=== PATIENT | female | born 1950 | race African-American/Black ===

== ENCOUNTER 2016-04-14 23:00 | Inpatient (IN) | payer MEDICARE, OTHER ==
--- NOTE | ~2016-04-14 | DS ---
Discharge Summary [facility] [address] [place]. [address] NAME: DAVID TERRELL : 54 STATUS : DIS IN PAT#: [id number] AGE: 66 ADM/REG DATE : 04/15/16 MR#: [id number] REPORT SERV DATE: 04/27/16 DICTATED BY: SRIKANTH MADRIGAL JR. DATE: 04/27/16 REPORT STATUS : Draft TRANSCRIBED BY: MIKAEL DATE: 04/27/16 Data Collection from hospitalization DISCHARGE DIAGNOSES: 1. Right leg ischemia. 2. Systolic dysfunction. 3. Hypertension. 4. Diabetes. 5. Tobacco use. 6. Peripheral arterial disease. 7. Anxiety disorder. 8. History of congestive heart failure. 9. History of colon cancer. 10.Atrial fibrillation. CONSULTATIONS: Xander Arellano MD. PROCEDURES: 1. Arteriographic puncture of left common femoral artery using SonoSite machine/aortogram, selective right leg runoff, placement of tPA catheter in the right distal popliteal artery, 04/15/2016. 2. Followup arteriogram following tPA infusion, AngioJet thrombectomy of right peroneal artery and right profunda femoris artery, 04/15/2016. DISCHARGE MEDICATIONS: Lipitor 40 mg at bedtime; Coreg 12.5 mg twice a day; Maximum D3, 10,000 units every seven days; Flexeril 10 mg every 8 hours as needed; Bentyl 20 mg four times a day as needed; Lovenox 60 mg twice a day; Scott 5/325 one tablet every 12 hours as needed; Prinivil 20 mg daily; Prilosec 40 mg daily as needed; Zantac 300 mg twice a day; Flector patch one patch topically daily as needed; and Coumadin as instructed. She was instructed not to continue Inderal 160 mg daily. CONDITION AT DISCHARGE: Stable. DISPOSITION: The patient was discharged home on a low-sodium, low-cholesterol cardiac diet with activities as instructed. She would follow up with Dr. Rajeev Freed, 04/21/2016, and Dr. Xander Arellano, 05/13/2016. She would follow up at the [facility], 04/20/2016, and at the [facility] Failure [facility] at [facility], 05/18/2016. HOSPITAL COURSE: This is a 66-year-old female who has a history of atrial fibrillation and was not on anticoagulation because of previous contraindication to long-term anticoagulation from GI tract bleeding. The patient developed the acute onset of right leg pain around 7 p.m. on the night prior to this admission. She came to the emergency room around midnight, was started on heparin, and she dramatically improved. It was felt that she would need to undergo an arteriogram. She was admitted to the hospital at this time for further evaluation and treatment. Upon admission, she was taken to the operating room where she underwent the above-mentioned procedure. She tolerated this well and there were no complications. The patient had Discharge Summary [facility] [address] [facility] [place]. [address] NAME: DAVID TERRELL : 54 STATUS : DIS IN PAT#: [id number] AGE: 66 ADM/REG DATE : 04/15/16 MR#: [id number] REPORT SERV DATE: 04/27/16 DICTATED BY: SRIKANTH MADRIGAL JR. DATE: 04/27/16 REPORT STATUS : Draft TRANSCRIBED BY: MIKAEL DATE: 04/27/16 gnosticist of a palpable pulse in the right foot, she was taken back that afternoon to the operating room after an 8-hour infusion for followup arteriogram; she tolerated this as well, and there were no complications. She was seen in consultation by Dr. Xander Arellano regarding anticoagulation recommendations with regard to atrial fibrillation. There had been some concern that she may have embolic phenomenon as a result of the atrial fibrillation that had been sinus. We have been asked to make further recommendations regarding anticoagulation and atrial fibrillation management. The patient said she had not had any chest pressure or pain or palpitations in the recent past. However, again, her history is limited and she was currently sedated with IV morphine. Telemetry review demonstrated sinus rhythm with occasional PVCs and PACs. There was no evidence of atrial fibrillation. Her rates were in the 60 to 70 range. Her EKG revealed sinus rhythm with left axis deviation and left ventricular hypertrophy by AVL criteria. There was a probable strain pattern in the anterolateral leads secondary to LVH (T-wave inversions). She was in a longer on anticoagulation due to a history of significant GI bleeding - details unknown at this point in time. She also has hypertension, depression, and anxiety. She had been admitted with acute right leg ischemia and had undergone angiography on tPA therapy with considerable improvement. She had no documented atrial fibrillation here or palpitations recently by her history, although this was limited. It was felt that it would be helpful to continue monitoring her on telemetry during her stay with plans for an event monitor at the time of discharge to determine if she was having atrial fibrillation. She does have very infrequent palpitations, and it may be helpful to advance monitoring to a loop recorder on an outpatient basis if necessary for definitive documentation of atrial fibrillation. Otherwise, we would continue her on propranolol and check her echocardiogram. Blood pressure was mildly elevated, antihypertensives would be started as needed. We felt that it would be helpful to hear GI input regarding the details of her history as well as whether she had a relative/absolute or no contraindication to anticoagulation if atrial fibrillation was clearly document. An echocardiogram was performed. The following day, she said she felt great, she had no discomfort, she was in a sinus rhythm with no atrial fibrillation. Her lungs were clear. She had no edema. She had palpable pedal pulses bilaterally. On 04/17/2016, she said she felt great. She had no chest pain or shortness of breath. It was felt that she had no acute physical therapy needs. INR level was 1.2. Coumadin had been started. Discharge planning was performed. On 04/18/2016, she was alert and cooperative. She had no edema. The right foot was warm. She said she felt back to normal. She remained on Coumadin, was going to go home with a Lovenox bridge. Discharge instructions were given. Due to her improved and stable condition, she was discharged home with the above-stated instructions. Information collected by: Mercy Gamez I submit the above information as my discharge summary. TG/MODL Srikanth Madrigal Jr., M.D. / [id number] Discharge Summary [address] [address] NAME: DAVID TERRELL : 54 STATUS : DIS IN PAT#: [id number] AGE: 66 ADM/REG DATE : 04/15/16 MR#: [id number] REPORT SERV DATE: 04/27/16 DICTATED BY: SRIKANTH MADRIGAL JR. DATE: 04/27/16 REPORT STATUS : Draft TRANSCRIBED BY: MODL DATE: 04/27/16 CC: Alize Fabian Jr., N.PShaka Arellano MD
--- NOTE | ~2016-04-14 | OP ---
Record Of Operation [facility] [address] [place]. [address] NAME: DAVID TERRELL : 54 STATUS : ADM IN PAT#: [id number] AGE: 66 ADM/REG DATE : 04/15/16 MR#: [id number] REPORT SERV DATE: 04/15/16 DICTATED BY: SRIKANTH MADRIGAL JR. DATE: 04/15/16 REPORT STATUS : Draft TRANSCRIBED BY: MODKarthikeyan DATE: 04/15/16 DATE OF PROCEDURE: 04/15/2016 PREOPERATIVE DIAGNOSIS: Presumed cardiac embolus to the right leg. POSTOPERATIVE DIAGNOSIS: Presumed cardiac embolus to the right leg. OPERATION: Followup arteriogram following tPA infusion, Angiojet thrombectomy of right peroneal artery and right profunda femoris artery. SURGEON: Srikanth Madrigal M.D. VASCULAR FELLOW: Dr. Kalpana Sood. HISTORY: This is a 66-year-old black female, who was admitted to the hospital this morning and had a tPA catheter placed by mo approximately 8 a.m. Throughout the morning, she had a tPA drip. This restored a palpable pulse in her right foot. She was brought back this afternoon after an 8-hour infusion for followup arteriogram. PROCEDURE IN DETAIL: The patient was placed on the operating room table. The left groin and the catheters were prepped and draped in the usual sterile manner. The stylet was removed from the tPA catheter. Followup arteriogram was then done. The posterior tibial artery is completely patent all the way to the foot. The peroneal artery still has clot in the middle aspect. It is opened proximally and distally. Anterior tibial was still a very small artery to the foot. We then used a NaviCross catheter to insert a 0.014 wire down into the peroneal artery. We then used a 4-Danish Angiojet catheter to pulse spray 6 mg of tPA directly into the peritoneal artery including the area where the occlusion was. We went up and down the artery to complete times. We then pulled back and did a followup arteriogram. The clot was beginning to lyse. We felt like we had used as much tPA in the lower legs if we could. We then pulled the tPA catheter back to the area of the right groin. Knowing that she had profunda clot earlier in the day, we then put the 0.014 wire out the profunda femoris artery. We then used a 20 mL of the tPA spray solution to spray the profunda femoris artery in case there is any residual clot there. We then pulled the Angiojet catheter out. Digital pressure was applied to the left groin for 20 minutes. 2000 units of heparin were given during the case. The patient tolerated the procedure well and taken back to recovery room in fair condition. There were no intraoperative complications. Estimated blood loss was negligible. DF/MIKAEL Srikanth Madrigal Jr., M.D. Record Of [address] [address] NAME: DAVID TERRELL : 54 STATUS : ADM IN [facility]#: [id number] AGE: 66 ADM/REG DATE : 04/15/16 MR#: [id number] REPORT SERV DATE: 04/15/16 DICTATED BY: SRIKANTH MADRIGAL JR. DATE: 04/15/16 REPORT STATUS : Draft TRANSCRIBED BY: MIKAEL DATE: 04/15/16 / [id number] CC: Srikanth Madrigal Jr., M.D.
--- NOTE | ~2016-04-14 | OP ---
Record Of Operation [facility] [address] [place]. [address] NAME: DAVID TERRELL : 54 STATUS : ADM IN PAT#: [id number] AGE: 66 ADM/REG DATE : 04/15/16 MR#: [id number] REPORT SERV DATE: 04/15/16 DICTATED BY: SRIKANTH BUSTILLO JR. DATE: 04/15/16 REPORT STATUS : Draft TRANSCRIBED BY: MODKarthikeyan DATE: 04/15/16 DATE OF PROCEDURE: PREOPERATIVE DIAGNOSIS: Acute ischemia of right leg. POSTOPERATIVE DIAGNOSIS: Acute ischemia of right leg. OPERATION: Arteriographic puncture of left common femoral artery using SonoSite machine, flush aortogram, selective right leg runoff, placement of tPA catheter in right distal popliteal artery. SURGEON: Srikanth Bustillo M.D. HISTORY: This is a 66-year-old, black female with a history of atrial fibrillation, was not on anticoagulation because of previous contraindication to long-term anticoagulation from GI tract bleeding. She had the acute onset of right leg pain at 7 o'clock last night. She came to the emergency room around midnight, was started on heparin, and dramatically improved. She was brought in this morning for an arteriogram. PROCEDURE IN DETAIL: The patient was placed on the operating table. Both groins and right leg were prepped and draped in the usual sterile manner. SonoSite machine was used, easily punctured the left common femoral artery. Wire was put up into the aorta. UF catheter was run over the wire. Distal aortogram was then done. Both renal arteries were opened. The distal aorta tapers naturally. The right and left common iliac arteries and the right and left external iliac arteries are normal. The common femoral artery itself is normal. There appears to be poor flow in the profunda consistent with a clot there. There was good flow down the SFA to the distal popliteal artery, all of which is normal. There was a very small anterior tibial artery. There appears to be clot in the peroneal artery. The posterior tibial artery appears to be a poor artery. I then elected to place a tPA catheter, 50 cm infusion length, into the distal popliteal artery so they could spray all 3 distal tibial arteries. This should also get the origin of the profunda. It was sutured into place, irrigated with heparinized saline. The patient tolerated the procedure well, taken back to recovery room in fair condition. There were no intraoperative complications. Estimated blood loss was negligible. The patient will be brought back in 8 hours for repeat arteriogram. DF/MODL Srikanth Bustillo Jr., M.D. / [id number] Record Of Operation [address] [address] NAME: DAVID TERRELL : 54 STATUS : ADM IN [facility]#: [id number] AGE: 66 ADM/REG DATE : 04/15/16 MR#: [id number] REPORT SERV DATE: 04/15/16 DICTATED BY: SRIKANTH BUSTILLO JR. DATE: 04/15/16 REPORT STATUS : Draft TRANSCRIBED BY: MODL DATE: 04/15/16 CC: Srikanth Bustillo Jr., M.D.
--- NOTE | ~2016-04-14 | CN ---
Consultation Report [facility] [address] [place]. [address] NAME: DAVID FRAUSTO : 54 STATUS : ADM IN PAT#: [id number] AGE: 66 ADM/REG DATE : 04/15/16 MR#: [id number] REPORT SERV DATE: 04/15/16 DICTATED BY: XANDER YBARRA DATE: 04/15/16 REPORT STATUS : Draft TRANSCRIBED BY: MIKAEL DATE: 04/15/16 DATE OF CONSULTATION: 04/15/2016 REASON FOR CONSULTATION: Anticoagulation recommendations, atrial fibrillation. HISTORY OF PRESENT ILLNESS: Ms Frausto is a pleasant 66-year-old female with a history of remote paroxysmal atrial fibrillation, on propafenone (formally on anticoagulation stopped secondary to significant GI bleeding history), hypertension, depression/anxiety, bowel cancer (adenocarcinoma) status post hemicolectomy in 2005, who presented to [facility] yesterday evening with acute ischemic right limb, treated with IV tPA and is now status post angiography currently still on tPA therapy. Per the primary service, there was concern that she may have an embolic phenomenon as result of atrial fibrillation that has been silent, and we have been asked to see her to make further recommendations regarding anticoagulation and atrial fibrillation management. The patient is currently sedated (just received morphine), therefore history from the patient is limited. She states that she has not had any chest pressures, pains or palpitations in the recent past, however, again her history is limited as she is currently sedated with IV morphine. ALLERGIES: PENICILLIN. PAST MEDICAL HISTORY: As above, as well as diabetes untreated. SOCIAL HISTORY: The patient lives at home with her partner. She states that under normal circumstances, she functions independently. She is an active smoker. She denies drinking alcohol or doing drugs. FAMILY HISTORY: Noncontributory for premature cardiovascular disease. HOME MEDICATIONS: 1. Vitamin D. 2. Flexeril. 3. Bentyl. 4. [place]. 5. Prilosec. 6. Inderal 160 mg p.o. daily. 7. Long-acting Zantac and Flector patch p.r.n. pain. PHYSICAL EXAMINATION: VITAL SIGNS: Blood pressure 136/63, pulse 69 regular, 100% on nasal cannula. GENERAL: Sedated, but arousable, appropriate, no acute distress. Well developed, well nourished. NEURO: Awake, alert and oriented x3; no focal deficits, appropriate mood. HEENT: Moist mucous membranes, anicteric sclerae, no nasal discharge. NECK: No JVD, no carotid bruit. LUNGS: Clear to auscultation bilaterally, no wheezes, rales or rhonchi. Consultation Report [facility] [address] [address] NAME: DAVID FRAUSTO : 54 STATUS : ADM IN PAT#: [id number] AGE: 66 ADM/REG DATE : 04/15/16 MR#: [id number] REPORT SERV DATE: 04/15/16 DICTATED BY: XANDER YBARRA DATE: 04/15/16 REPORT STATUS : Draft TRANSCRIBED BY: MIKAEL DATE: 04/15/16 CV: Regular rhythm, normal S1/S2, no murmurs, rubs or gallops. ABDOMEN: Soft, non-tender, non-distended, no rebound or guarding. EXTREMITIES: Warm (currently on body warmer), with Doppler-positive distal pulses in her lower extremities bilaterally. SKIN: Warm, dry and intact; no rash. PERTINENT TEST FINDINGS: Potassium 3.9, creatinine 0.91, glucose 115. White blood cell count 8.2, hemoglobin 13.6, and platelets 278. Echocardiogram pending. EKG with sinus rhythm, left axis deviation, left ventricular hypertrophy by AVL criteria. Probable strain pattern in anterolateral leads secondary to LVH (T-wave inversions). Telemetry review demonstrates sinus rhythm with occasional PVCs and PACs. No evidence of atrial fibrillation. Rates in the 60-70 range. IMPRESSION AND PLAN: Ms Frausto is a 66-year-old female with a history of remote paroxysmal atrial fibrillation, on propafenone. No longer on anticoagulation due to history of significant gastrointestinal bleeding-details unknown at this point in time, hypertension, depression/anxiety, who was admitted with acute right leg ischemia status post angiography on IV tPA therapy with considerable improvement. Accordingly, I have the following recommendations by problem below: 1. Paroxysmal atrial fibrillation-no documented atrial fibrillation here or palpitations recently by her history, although limited. Therefore, it will be helpful to continue monitoring on telemetry during her stay here, with plans for an event monitor upon discharge to determine if she is having any atrial fibrillation. As she does have very infrequent palpitations, it may be helpful to advance monitoring to a loop recorder on an outpatient basis if necessary for definitive documentation of atrial fibrillation. Otherwise, continue her on propafenone and check an echocardiogram. 2. History of significant gastrointestinal bleed-Gastroenterology has been consulted, and it will be helpful to hear their inputs regarding the details of her history, as well as whether she has a relative, absolute or no contraindication to anticoagulation if atrial fibrillation is clearly documented. 3. Hypertension-blood pressure is mildly elevated. Start antihypertensives as needed. IFEANYI/MODL Xander Ybarra MD / [id number] CC: Alize Fabian Jr., N.P.
[2016-04-14 20:58] LABS: BASOPHILS 0.1 %; BASOPHILS ABSOLUTE 0.01 10/3/uL (0.0-0.16); EOSINOPHILS 2.5 %; EOSINOPHILS ABSOLUTE 0.21 10/3/uL (0.0-0.53); ER CBC TAT 0 Hrs 11 Mins; HEMOGLOBIN 13.6 g/dL (12.0-16.0); IMMATURE GRANULOCYTES 0.1 %; IMMATURE GRANULOCYTES ABSOLUTE 0.01 10/3/uL (0.0-0.11); LYMPHOCYTES 36.4 %; MEAN CORPUSCULAR HEMOGLOB 28.4 pg (26.0-34.0); MEAN PLATELET VOLUME 11.1 fL (9.2-13.0); MONOCYTES 5.9 %; MONOCYTES ABSOLUTE 0.49 10/3/uL (0.21-1.20); NEUTROPHILS ABSOLUTE 4.52 10/3/uL (2.02-8.40); PLATELET COUNT 278 10/3/uL (150-400); RBC DISTRIBUTION WIDTH 14.2 % (12.0-16.0); RED CELL COUNT 4.79 10/6/uL (4.0-5.6); WHITE BLOOD CELLS 8.2 10/3/uL (4.5-10.5)
[2016-04-14 20:59] LABS: HEMATOCRIT 41.2 % (36.0-48.0); MANUAL DIFF NO %
[2016-04-14 21:09] LABS: D-DIMER QUANTITATIVE 0.68 ug/mLFEU (< 0.50)
[2016-04-14 21:12] LABS: ALBUMIN 3.8 G/DL (3.5-5.0); ALKALINE PHOSPHATASE 99 U/L (45-117); BUN (BLOOD UREA NITROGEN) 16 MG/DL (6-23); CALCIUM, SERUM 8.8 MG/DL (8.5-10.4); CHLORIDE, SERUM 105 MMOL/L (96-112); CO2 (CARBON DIOXIDE) 25 MMOL/L (24-34); CREATININE 0.91 MG/DL (0.55-1.02); GFR AFRICAN AMERICAN 77 ML/MIN (>=60); GFR NON AFRICAN AMERICAN 67 ML/MIN (>=60); GLOBULIN 3.7 G/DL (2.5-4.1); GLUCOSE, SERUM 115 MG/DL (60-99); POTASSIUM, SERUM 3.9 MMOL/L (3.5-5.3); SGOT(AST) 14 U/L (5-40); SGPT(ALT) 21 U/L (5-65); SODIUM, SERUM 141 MMOL/L (135-148); TOTAL BILIRUBIN 0.4 MG/DL (0-1.2); TOTAL PROTEIN 7.5 G/DL (6.0-8.5)
[~2016-04-14 23:00] MED LIST: ACET500CAP PO; ALTA5 PO; AMB10 PO; BENTYL20 PO; FLEX PO; FOSAMAX70 MG PO; HYOMAX-SL0.125 MG PO; INDE160LA PO; KLONO1 PO; KLONO5 PO; MICARDIS HC1 PO; MIDRIN PO; NASONEX NAS; PAXIL CR25 MG PO; PR25 PO; PRILOSEC40 MG PO; RANITIDINE300 MG PO; SINGULAIR1 PO; SYSTANE OP; TRAZ50 PO; ULTRAM50 PO; VITC500 PO; XARELTO15 MG PO; XARELTO20 MG PO; ZANAFLEX 4 MG TA4 MG PO; [UNRECOGNIZED DRUG - OTHER] PO
[2016-04-15] MEDS ORDERED: INDE160LA PO (01:34)
[2016-04-15] MEDS ORDERED: ZANTAC300 MG PO (01:35)
[2016-04-15] MEDS ORDERED: MAXIMUM D3 PO (01:35)
[2016-04-15] MEDS ORDERED: BENTYL20 PO (01:35)
[2016-04-15] MEDS ORDERED: PRILOSEC40 MG PO (01:36)
[2016-04-15] MEDS ORDERED: FLECTOR PATCH 1.3% TOP (01:37)
[2016-04-15] MEDS ORDERED: NORCO1 TA1 PO (01:38)
[2016-04-15] MEDS ORDERED: FLEX PO (01:39)
[2016-04-16 09:18] LABS: BASOPHILS 0.1 %; BASOPHILS ABSOLUTE 0.01 10/3/uL (0.0-0.16); EOSINOPHILS 1.3 %; EOSINOPHILS ABSOLUTE 0.11 10/3/uL (0.0-0.53); HEMATOCRIT 37.7 % (36.0-48.0); HEMOGLOBIN 12.5 g/dL (12.0-16.0); IMMATURE GRANULOCYTES 0.2 %; IMMATURE GRANULOCYTES ABSOLUTE 0.02 10/3/uL (0.0-0.11); LYMPHOCYTES ABSOLUTE 2.06 10/3/uL (0.67-4.30); MEAN CORPUS HGB CONC 33.2 g/dL (32.0-36.0); MEAN CORPUSCULAR HEMOGLOB 29.1 pg (26.0-34.0); MEAN CORPUSCULAR VOLUME 87.7 fL (80-100); MEAN PLATELET VOLUME 10.9 fL (9.2-13.0); MONOCYTES 5.2 %; MONOCYTES ABSOLUTE 0.45 10/3/uL (0.21-1.20); NEUTROPHILS 69.2 %; NEUTROPHILS ABSOLUTE 5.95 10/3/uL (2.02-8.40); WHITE BLOOD CELLS 8.6 10/3/uL (4.5-10.5)
[2016-04-16 09:30] LABS: CALCIUM, SERUM 8.3 MG/DL (8.5-10.4); CHLORIDE, SERUM 106 MMOL/L (96-112); CO2 (CARBON DIOXIDE) 24 MMOL/L (24-34); CREATININE 0.88 MG/DL (0.55-1.02); GFR AFRICAN AMERICAN 80 ML/MIN (>=60); GFR NON AFRICAN AMERICAN 69 ML/MIN (>=60); MANUAL DIFF NO %; PLATELET COUNT 188 10/3/uL (150-400); POTASSIUM, SERUM 3.4 MMOL/L (3.5-5.3); SODIUM, SERUM 140 MMOL/L (135-148)
[2016-04-16 09:33] LABS: INTERNATIONAL NORMAL RATI 1.2 UNITS (-); PROTIME (NOT ORD) 15.4 SEC (12.0-14.5)
[2016-04-16 09:34] LABS: PARTIAL THROMBO TIME 86.1 SEC (22.5-37.2)
[2016-04-16 09:36] LABS: BUN (BLOOD UREA NITROGEN) 12 MG/DL (6-23); GLUCOSE, SERUM 160 MG/DL (60-99)
[2016-04-16 20:33] LABS: INTERNATIONAL NORMAL RATI 1.2 UNITS (-); PROTIME (NOT ORD) 14.8 SEC (12.0-14.5)
[2016-04-17 04:39] LABS: INTERNATIONAL NORMAL RATI 1.2 UNITS (-); PROTIME (NOT ORD) 14.7 SEC (12.0-14.5)
[2016-04-17 04:40] LABS: BASOPHILS 0.2 %; BASOPHILS ABSOLUTE 0.01 10/3/uL (0.0-0.16); EOSINOPHILS 1.8 %; EOSINOPHILS ABSOLUTE 0.12 10/3/uL (0.0-0.53); HEMATOCRIT 34.1 % (36.0-48.0); HEMOGLOBIN 11.2 g/dL (12.0-16.0); IMMATURE GRANULOCYTES 0.2 %; IMMATURE GRANULOCYTES ABSOLUTE 0.01 10/3/uL (0.0-0.11); LYMPHOCYTES 39.8 %; LYMPHOCYTES ABSOLUTE 2.58 10/3/uL (0.67-4.30); MEAN CORPUS HGB CONC 32.8 g/dL (32.0-36.0); MEAN CORPUSCULAR HEMOGLOB 28.6 pg (26.0-34.0); MONOCYTES 6.3 %; MONOCYTES ABSOLUTE 0.41 10/3/uL (0.21-1.20); NEUTROPHILS 51.7 %; NEUTROPHILS ABSOLUTE 3.36 10/3/uL (2.02-8.40); PLATELET COUNT 186 10/3/uL (150-400); RBC DISTRIBUTION WIDTH 14.1 % (12.0-16.0); RED CELL COUNT 3.92 10/6/uL (4.0-5.6); WHITE BLOOD CELLS 6.5 10/3/uL (4.5-10.5)
[2016-04-17 04:44] LABS: BUN (BLOOD UREA NITROGEN) 12 MG/DL (6-23); CALCIUM, SERUM 8.2 MG/DL (8.5-10.4); CHLORIDE, SERUM 108 MMOL/L (96-112); CO2 (CARBON DIOXIDE) 26 MMOL/L (24-34); CREATININE 0.91 MG/DL (0.55-1.02); GFR AFRICAN AMERICAN 77 ML/MIN (>=60); GFR NON AFRICAN AMERICAN 67 ML/MIN (>=60); GLUCOSE, SERUM 168 MG/DL (60-99); MANUAL DIFF NO %; POTASSIUM, SERUM 3.6 MMOL/L (3.5-5.3); SODIUM, SERUM 142 MMOL/L (135-148)
[2016-04-18 07:03] LABS: BASOPHILS 0.2 %; BASOPHILS ABSOLUTE 0.01 10/3/uL (0.0-0.16); EOSINOPHILS 2.9 %; EOSINOPHILS ABSOLUTE 0.16 10/3/uL (0.0-0.53); HEMATOCRIT 35.4 % (36.0-48.0); HEMOGLOBIN 11.8 g/dL (12.0-16.0); IMMATURE GRANULOCYTES 0.4 %; IMMATURE GRANULOCYTES ABSOLUTE 0.02 10/3/uL (0.0-0.11); LYMPHOCYTES ABSOLUTE 2.13 10/3/uL (0.67-4.30); MEAN CORPUS HGB CONC 33.3 g/dL (32.0-36.0); MEAN CORPUSCULAR HEMOGLOB 29.3 pg (26.0-34.0); MEAN CORPUSCULAR VOLUME 87.8 fL (80-100); MEAN PLATELET VOLUME 11.1 fL (9.2-13.0); MONOCYTES 8.8 %; MONOCYTES ABSOLUTE 0.49 10/3/uL (0.21-1.20); NEUTROPHILS 49.7 %; NEUTROPHILS ABSOLUTE 2.79 10/3/uL (2.02-8.40); PLATELET COUNT 181 10/3/uL (150-400); RBC DISTRIBUTION WIDTH 13.9 % (12.0-16.0); RED CELL COUNT 4.03 10/6/uL (4.0-5.6); WHITE BLOOD CELLS 5.6 10/3/uL (4.5-10.5)
[2016-04-18 07:05] LABS: MANUAL DIFF NO %
[2016-04-18 07:09] LABS: BUN (BLOOD UREA NITROGEN) 8 MG/DL (6-23); CALCIUM, SERUM 8.5 MG/DL (8.5-10.4); CHLORIDE, SERUM 109 MMOL/L (96-112); CO2 (CARBON DIOXIDE) 27 MMOL/L (24-34); CREATININE 0.87 MG/DL (0.55-1.02); GFR AFRICAN AMERICAN 82 ML/MIN (>=60); GFR NON AFRICAN AMERICAN 70 ML/MIN (>=60); GLUCOSE, SERUM 103 MG/DL (60-99); POTASSIUM, SERUM 4.1 MMOL/L (3.5-5.3); SODIUM, SERUM 145 MMOL/L (135-148)
[2016-04-18 07:10] LABS: INTERNATIONAL NORMAL RATI 1.5 UNITS (-)
[2016-04-18] MEDS ORDERED: LIPITOR40 PO (14:11)
[2016-04-18] MEDS ORDERED: COREG12 PO (14:12)
[2016-04-18] MEDS ORDERED: LOVENOX60 SC (14:13)
[2016-04-18] MEDS ORDERED: PRIN20 PO (14:14)
[2016-04-18] MEDS ORDERED: C5 (14:15)
[2016-06-01] MEDS ORDERED: NASONEX NAS (10:43)
[2016-06-01] MEDS ORDERED: JANTOVEN1 MG PO (10:43)
[2016-06-01] MEDS ORDERED: [UNRECOGNIZED DRUG - OTHER] PO (10:44)
[2016-06-01] MEDS ORDERED: GLUCPH (11:01)
== END 2016-04-18 15:46 | disposition home or self-care (01) | DRG 270 ==
LOC: ER 23:00 → 2SO 04-15 00:44 → SDC/OF 04-15 08:13 → CVICU 04-15 08:39 → SDC/OF 04-15 18:35 → 2SO 04-15 20:13
PROVIDERS: Emergency Medicine; Surgery
PROC: 3E05317 Introduction of Other Thrombolytic into Peripheral Artery, Percutaneous Approach (ICD-10-PCS; 2016-04-15)
PROC: B41F1ZZ Fluoroscopy of Right Lower Extremity Arteries using Low Osmolar Contrast (ICD-10-PCS; 2016-04-15)
PROC: 3E05317 Introduction of Other Thrombolytic into Peripheral Artery, Percutaneous Approach (ICD-10-PCS; 2016-04-15)
PROC: 04HM33Z Insertion of Infusion Device into Right Popliteal Artery, Percutaneous Approach (ICD-10-PCS; principal; 2016-04-15 06:45)
PROC: 04CT3ZZ Extirpation of Matter from Right Peroneal Artery, Percutaneous Approach (ICD-10-PCS; 2016-04-15 06:45)
PROC: 04CV3ZZ Extirpation of Matter from Right Foot Artery, Percutaneous Approach (ICD-10-PCS; 2016-04-15 15:45)
DX: I75.021 Atheroembolism of right lower extremity (principal); I50.21 Acute systolic (congestive) heart failure; I70.201 Unspecified atherosclerosis of native arteries of extremities, right leg; I48.0 Paroxysmal atrial fibrillation; E11.9 Type 2 diabetes mellitus without complications; I25.10 Atherosclerotic heart disease of native coronary artery without angina pectoris; F41.9 Anxiety disorder, unspecified; F32.9 Major depressive disorder, single episode, unspecified; I49.1 Atrial premature depolarization; I49.3 Ventricular premature depolarization; Z85.038 Personal history of other malignant neoplasm of large intestine; Z88.0 Allergy status to penicillin; I25.2 Old myocardial infarction
CPT/HCPCS: 36200; 37186; 37211; 37214; 75630; 80048; 80053; 82962; 85025; 85379; 85610; 85730; 93005; 97161-GP; 99291; A9270-GY; C1757; C1769; C1887; C1894; C8929; G8978-CH-GP; G8979-CH-GP; G8980-CH-GP; J0690; J2250; J2270; J2405; J2997; J3010; J3370; Q9957; Q9966